=== PATIENT | female | born 1940 | race Caucasian/White ===

== ENCOUNTER 2024-12-19 20:44 | Emergency (ER) | payer OTHER ==
[~2024-12-19] VITALS: Ht 162.6 cm; Wt 45.4 kg
[2024-12-19 21:23] LABS: BASOPHILS % (AUTO) 0.3 % (0.0-2.0); EOSINOPHILS % (AUTO) 0.1 % (0.0-6.0); HEMATOCRIT 33 % (33-45); HEMOGLOBIN 11.5 g/dL (11.5-14.8); LYMPHOCYTES # (AUTO) 0.2 K/uL (0.8-4.8); LYMPHOCYTES % (AUTO) 2.4 % (20.0-44.0); MEAN CORPUSCULAR HEMOGLOBIN 35 PG (26.0-33.0); MEAN CORPUSCULAR HGB CONC 35 g/dl (31.0-36.0); MEAN CORPUSCULAR VOLUME 102 fL (82-100); MONOCYTES # (AUTO) 0.4 K/uL (0.1-1.30); MONOCYTES % (AUTO) 4.8 % (2.0-12.0); NEUTROPHILS # (AUTO) 7.2 K/uL (1.8-8.9); NEUTROPHILS % (AUTO) 92.4 % (43.0-81.0); PLATELET COUNT (AUTO) 222 K/uL (150-450); RED BLOOD CELL COUNT(AUTO) 3.24 MIL/uL (4.0-5.2); RED CELL DISTRIBUTION WIDTH 14.3 % (11.5-15.0); WHITE BLOOD COUNT (AUTO) 7.8 K/uL (4.3-11.0)
[2024-12-19 21:30] LABS: CALCIUM, SERUM 7.1 mg/dL (8.5-10.1); CARBON DIOXIDE 18 mmol/L (21-32); CHLORIDE 86 mmol/L (98-107); CREATININE 0.8 mg/dL (0.6-1.3); GLUCOSE 140 mg/dL (74-106); POTASSIUM 3.1 mmol/L (3.5-5.1); SODIUM SERUM 144 mmol/L (136-145); UREA NITROGEN, BLOOD 17 mg/dL (7-18)
[2024-12-19] MEDS: IV NS 0.9% 1,000 ML BAG IV ONE (21:34)
[2024-12-19 21:37] LABS: BILIRUBIN,URINE Negative (NEGATIVE); BLOOD, URINE Small Ery/uL (NEGATIVE); COLOR,URINE YELLOW (YELLOW); KETONES,URINE 15 mg/dL (NEGATIVE); LEUKOCYTE ESTERASE ,URINE Negative (NEGATIVE); PROTEIN,URINE >=300 mg/dl (NEGATIVE); UGLUCOSE Negative (NEGATIVE); UROBILINOGEN,URINE 0.2 EU/dL (0.2)
[2024-12-19 21:38] LABS: APPEARANCE,URINE HAZY (CLEAR); NITRITE, URINE POSITIVE (NEGATIVE)
[2024-12-19 21:40] LABS: ADD URINE CULTURE YES; BACTERIA,URINE 1+ /HPF (None Seen); SQUAMOUS EPITHELIAL CELL,UR Moderate /HPF (None Seen)
[2024-12-19 21:41] LABS: CALCIUM OXALATE CRYSTALS,UR Moderate /HPF (None Seen); URINE AMORPHOUS PHOSPHATES Few /HPF (None Seen)
[2024-12-19 21:46] LABS: ALANINE AMINOTRANSFERASE 11 U/L (12-78); ALBUMIN 2.5 g/dL (3.4-5.0); ALCOHOL, BLOOD < 3 mg/dL (0-10); ALKALINE PHOSPHATASE 66 U/L (46-116); ASPARTATE AMINOTRANSFERASE 15 U/L (15-37); BILIRUBIN,DIRECT 0.1 mg/dL (0.0-0.2); BILIRUBIN,TOTAL 0.4 mg/dL (0.2-1.0); TOTAL PROTEIN, SERUM 5.6 g/dL (6.4-8.2)
[2024-12-19 21:47] LABS: AMPHETAMINE, URINE NEGATIVE (NEGATIVE); BARBITURATE, URINE NEGATIVE (NEGATIVE); BENZODIAZEPINE, URINE NEGATIVE (NEGATIVE); CANNABINOID, URINE NEGATIVE (NEGATIVE); COCCAINE, URINE NEGATIVE (NEGATIVE); OPIATE, URINE NEGATIVE (NEGATIVE); PHENCYCLIDINE SCREEN,URINE NEGATIVE (NEGATIVE)
[2024-12-19 21:56] LABS: SERUM AMMONIA < 10 umol/L (11-32)
[2024-12-19] MEDS ORDERED: POTASSIUM CHLORIDE 20 MEQ TAB.PRT.SR PO ONE (22:07)
[2024-12-19] MEDS: POTASSIUM CHLORIDE 20 MEQ TAB.PRT.SR PO ONE (22:12)
[2024-12-20 01:39] VITALS: BP 149/98; TEMP 98.2; O2SAT 98
== END 2024-12-20 01:40 | disposition short-term general hospital (02) ==
LOC: ER 20:49
DX: R53.1 Weakness (principal); R26.2 Difficulty in walking, not elsewhere classified; R00.0 Tachycardia, unspecified; I10 Essential (primary) hypertension; I48.91 Unspecified atrial fibrillation
CPT/HCPCS: 99285; 96360; 93005; 71045; 82140; 85025; 80048; 80076; 81001; 36415; 84443; 84484; 80320; 80307; J7030; 87086-TC; G0480

== ENCOUNTER 2025-02-06 16:08 | Emergency (ER) | payer OTHER ==
[~2025-02-06] VITALS: Ht 157.5 cm; Wt 44.5 kg
[2025-02-06 16:44] LABS: PLATELET COUNT (AUTO) 365 K/uL (150-450); RED BLOOD CELL COUNT(AUTO) 3.39 MIL/uL (4.0-5.2); RED CELL DISTRIBUTION WIDTH 14.9 % (11.5-15.0); WHITE BLOOD COUNT (AUTO) 9.5 K/uL (4.3-11.0)
[2025-02-06 16:49] LABS: CALCIUM, SERUM 9.1 mg/dL (8.5-10.1); CREATININE 0.9 mg/dL (0.6-1.3); SODIUM SERUM 124 mmol/L (136-145); UREA NITROGEN, BLOOD 22 mg/dL (7-18)
[2025-02-06 16:50] LABS: ALCOHOL, BLOOD 93 mg/dL (0-10)
[2025-02-06 16:53] LABS: INR 0.88 (0.91-1.10)
[2025-02-06] MEDS ORDERED: FENTANYL PF 100MCG/2ML AMPUL ONE (18:14)
[2025-02-06] MEDS: FENTANYL PF 100MCG/2ML AMPUL IV ONE (18:19)
[2025-02-06] MEDS: IV NS 0.9% 1,000 ML BAG IV ONE (19:10)
[2025-02-06] MEDS ORDERED: HYDR-4303 PO (19:55)
[2025-02-06 20:54] VITALS: BP 151/68; TEMP 98; O2SAT 97
== END 2025-02-06 20:55 | disposition home or self-care (01) ==
LOC: ER 16:10
DX: S42.211A Unspecified displaced fracture of surgical neck of right humerus, initial encounter for closed fracture (principal); S00.531A Contusion of lip, initial encounter; S00.81XA Abrasion of other part of head, initial encounter; E86.0 Dehydration; E87.1 Hypo-osmolality and hyponatremia; I10 Essential (primary) hypertension; F10.20 Alcohol dependence, uncomplicated; I48.91 Unspecified atrial fibrillation; W01.0XXA Fall on same level from slipping, tripping and stumbling without subsequent striking against object, initial encounter; Y93.89 Activity, other specified; Y92.89 Other specified places as the place of occurrence of the external cause; Y99.8 Other external cause status
CPT/HCPCS: 99285; 96374; 96361; 71045; 73030; 72125; 70450; 85025; 80048; 36415; 85730; 80320; J3010; G0480

== ENCOUNTER 2025-05-30 14:30 | Emergency (ER) | payer OTHER ==
[~2025-05-30] VITALS: Ht 157.5 cm; Wt 47.6 kg
[~2025-05-30 14:30] MED LIST: HYDR-4303 PO
[2025-05-30 14:37] VITALS: TEMP 98
[2025-05-30 15:17] LABS: PLATELET COUNT (AUTO) 320 K/uL (150-450); RED BLOOD CELL COUNT(AUTO) 3.42 MIL/uL (4.0-5.2); RED CELL DISTRIBUTION WIDTH 17.3 % (11.5-15.0); WHITE BLOOD COUNT (AUTO) 7.1 K/uL (4.3-11.0)
[2025-05-30 15:26] LABS: CALCIUM, SERUM 8.2 mg/dL (8.5-10.1); CREATININE 0.7 mg/dL (0.6-1.3); SODIUM SERUM 132.0 mmol/L (136-145); UREA NITROGEN, BLOOD 15.0 mg/dL (7-18)
[2025-05-30 15:31] LABS: CREATINE KINASE, TOTAL 23.0 U/L (26-192)
[2025-05-30 15:32] LABS: ALCOHOL, BLOOD 130.0 mg/dL (0-10); ASPARTATE AMINOTRANSFERASE 14.0 U/L (15-37); TOTAL PROTEIN, SERUM 6.1 g/dL (6.4-8.2)
[2025-05-30 19:25] VITALS: BP 119/75; O2SAT 98
== END 2025-05-30 19:26 | disposition home or self-care (01) ==
LOC: ER 14:33
DX: F10.229 Alcohol dependence with intoxication, unspecified (principal); I11.9 Hypertensive heart disease without heart failure; I48.91 Unspecified atrial fibrillation; Y90.9 Presence of alcohol in blood, level not specified; W18.30XA Fall on same level, unspecified, initial encounter; Y93.89 Activity, other specified; Y92.89 Other specified places as the place of occurrence of the external cause; Y99.9 Unspecified external cause status
CPT/HCPCS: 36415; 80053-TC; 82550-TC; 84484-TC; 85025-TC; G0480